=== PATIENT | male | born 1955 | race Two or more races ===

== ENCOUNTER 2020-05-13 09:39 | Emergency (ER) | payer OTHER ==
[~2020-05-13] VITALS: Ht 165.1 cm; Wt 56.7 kg
[2020-05-13] MEDS ORDERED: ECOTRIN325 M1 PO (09:51)
[2020-05-13] MEDS ORDERED: ATORVASTATIN CA10 MG PO (09:51)
[2020-05-13] MEDS ORDERED: FLAGYL500MG PO (15:50)
[2020-05-13] MEDS ORDERED: LEVSIN/SL0.125 MG SL (15:50)
[2020-05-13] MEDS ORDERED: INTESTINEX680 M1 PO (15:50)
[2020-05-13] MEDS ORDERED: CIPRO500 MG PO (15:50)
[2020-05-13] MEDS ORDERED: PEPCID AC20 MG PO (15:50)
== END 2020-05-13 16:12 | disposition home or self-care (01) ==
LOC: ER 09:39
DX: A09 Infectious gastroenteritis and colitis, unspecified (principal); K52.89 Other specified noninfective gastroenteritis and colitis; E86.0 Dehydration